=== PATIENT | male | born 1995 | race Caucasian/White ===

== ENCOUNTER 2017-04-09 11:57 | Inpatient (IN) | payer MEDICAID ==
[~2017-04-09] VITALS: Ht 182.9 cm; Wt 63.0 kg
--- NOTE | 2017-04-09 12:01 | NUR ---
[facility] CALLED. PT COMBATIVE. MOTHER AT BEDSIDE.
[2017-04-09] MEDS ORDERED: LORAZEPAM 2 MG/1 ML VIAL IV ONE (12:15)
[2017-04-09] MEDS ORDERED: IV NORMAL SALINE 1000 ML BAG IV ONE ×2 (12:15→13:15)
[2017-04-09] MEDS ORDERED: LORAZEPAM 2 MG/1 ML VIAL ONE (12:19)
[2017-04-09 12:27] LABS: BASOPHILS # (AUTO) 0.1 K/uL (0.0-8.0); BASOPHILS % (AUTO) 0.4 % (0.0-2.0); EOSINOPHILS # (AUTO) 0.2 K/uL (0.0-0.7); EOSINOPHILS % (AUTO) 1.3 % (0.0-7.0); HEMATOCRIT 47.3 % (40-50); HEMOGLOBIN 15.8 G/DL (14.0-18.0); LYMPHOCYTES # (AUTO) 3.7 K/UL (0.8-4.8); MEAN CORPUSCULAR HEMOGLOBIN 36.9 UUG (27.0-31.0); MEAN CORPUSCULAR HGB CONC 33 g/dL (32.0-37.0); MEAN CORPUSCULAR VOLUME 110.5 FL (82.0-92.0); MONOCYTES % (AUTO) 7.5 % (0.0-11.0); NEUTROPHILS # (AUTO) 8.1 K/UL (1.8-8.9); NEUTROPHILS % (AUTO) 62.8 % (38.5-71.5); PLATELET COUNT (AUTO) 116 K/UL (150-450); RED BLOOD CELL COUNT(AUTO) 4.29 MIL/UL (4.7-6.1); WHITE BLOOD COUNT (AUTO) 13.1 K/UL (4.0-11.2)
[2017-04-09] MEDS ORDERED: ONDANSETRON IV *ER 4 MG/2 ML VIAL IV ONE (12:30)
[2017-04-09] MEDS ORDERED: ONDANSETRON 4 MG/2 ML VIAL ONE (12:33)
[2017-04-09 12:38] LABS: LYMPHOCYTES % (MANUAL) 28 % (20-40); MONOCYTES % (MANUAL) 10 % (2-10); NEUTROPHILS % (MANUAL) 62 % (42-75)
[2017-04-09 12:41] LABS: CARBON DIOXIDE 11 mmol/L (21-32); CHLORIDE 93 mmol/L (98-107); CREATININE 1.2 mg/dL (0.6-1.3); GLUCOSE 181 mg/dL (74-106); POTASSIUM 3.5 mmol/L (3.5-5.1); UREA NITROGEN, BLOOD 5 mg/dL (7-18)
[2017-04-09 12:47] LABS: ALANINE AMINOTRANSFERASE 143 U/L (16-63); ALKALINE PHOSPHATASE 253 U/L (50-136); ASPARTATE AMINOTRANSFERASE 517 U/L (15-37); BILIRUBIN,DIRECT 1.2 mg/dL (0.0-0.2); BILIRUBIN,TOTAL 2.8 mg/dL (0.2-1.0); TOTAL PROTEIN, SERUM 8.9 g/dL (6.4-8.2)
[2017-04-09 12:49] LABS: PHENOBARBITAL < 1.0 ug/mL (15.0-39.0); PHENYTOIN (DILANTIN) < 0.5 ug/mL (10.0-20.0); VALPROIC ACID < 3 ug/mL (50-100)
--- NOTE | 2017-04-09 13:05 | NUR ---
PT COMFORTABLE, TALKING TO MOTHER. CALM ENOUGH TO BE ABLE TO DO THE EKG
[2017-04-09 13:10] LABS: ETHANOL < 3 MG/DL (0-0)
[2017-04-09] MEDS ORDERED: HYDROXYZINE PO (13:42)
[2017-04-09] MEDS ORDERED: MELATONIN PO (13:42)
[2017-04-09] MEDS ORDERED: ATIVAN PO (13:42)
--- NOTE | 2017-04-09 13:48 | NUR ---
PT REQUESTED TO WALK TO BATHROOM. PT WALKS IN STEADY GAIT.
[2017-04-09 14:10] VITALS: BP 103/70
--- NOTE | 2017-04-09 14:30 | NUR ---
PT IS LAYING IN BED COMFORTABLY. PADDED RAILS OF BED FOR SAFETY, PUT THE BED TO THE LOWEST POSITION. ALL SAFETY NEEDS ARE MET. NO PAIN NOTED/REPORTED. NO S/S OF RESPIRATORY DISTRESS NOTED. WILL CONTINUE TO MONITOR.
[2017-04-09 14:53] LABS: *AMPHETAMINE, URINE NEGATIVE (NEGATIVE); *BARBITURATE, URINE NEGATIVE (NEGATIVE); *CANNABINOID, URINE POSITIVE (NEGATIVE); *COCCAINE, URINE NEGATIVE (NEGATIVE); *OPIATE, URINE NEGATIVE (NEGATIVE); *PHENCYCLIDINE SCREEN,URINE NEGATIVE (NEGATIVE)
[2017-04-09] MEDS ORDERED: MVI ADULT 10 ML VIAL=1 AMP 10 ML, THIAMINE HCL INJ 100 MG, FOLIC ACID 1 MG, MAGNESIUM S... IV SCH ×5 (15:15)
[2017-04-09 15:34] VITALS: BP 103/70
[2017-04-09] MEDS: FOLIC ACID 1 MG TABLET PO SCH (16:12)
[2017-04-09] MEDS: MULTIVITAMINS,THERAPEUTIC TABLET PO SCH (16:12)
[2017-04-09] MEDS: THIAMINE HCL 100 MG TABLET PO SCH (16:12)
[2017-04-09] MEDS: POTASSIUM CHLORIDE 20 MEQ in IV D5/ 0.9% NACL 1,000 ML IV PRN (16:16)
--- NOTE | 2017-04-09 18:13 | NUR ---
PT REQUESTS TO HAVE ATIVAN NOW, AND SLEEPING MEDICATION TO BE GIVEN AT NIGHT. PAGED DR. VYAS IN REGARDS OF THE ORDERS, AWAITING RESPONSE.
--- NOTE | 2017-04-09 19:29 | NUR ---
NO CHANGES NOTED. ALL SAFETY NEEDS ARE MET.
--- NOTE | 2017-04-09 19:30 | NUR ---
NSG: PT RECEIVED IN BED, A/O X 4, ANXIOUS. WILL MEDICATE WITH ATIVAN. PT REQUESTING SLEEPING PILL WELL. WILL CALL .
[2017-04-09] MEDS: LORAZEPAM 1 MG TABLET PO PRN (19:57)
[2017-04-09 20:14] VITALS: BP 118/81
[2017-04-09] MEDS ORDERED: diphenhydrAMINE 25 MG CAP PO PRN (20:30)
--- NOTE | 2017-04-09 20:30 | NUR ---
NSG: SPOKE WITH DR. GERMAIN, AUDIOLOGY DOCTOR FOR DR. VYAS, NOTIFIED REGARDING PT REQUEST TO CHANGE FREQUENCY ORDER FOR ATIVAN AND ORDER FOR SLEEPING PILL. ONLY ORDERED BENADRYL. INFORMED PT AND HIS MOM.
[2017-04-10 00:04] VITALS: BP 119/80
[2017-04-10] MEDS: POTASSIUM CHLORIDE 20 MEQ in IV D5/ 0.9% NACL 1,000 ML IV PRN (01:52)
--- NOTE | 2017-04-10 02:00 | NUR ---
NSG: PT STILL AWAKE, THINKING OF LEAVING AMA. EXPLAINED TO PATIENT RISK OF LEAVING AMA. PER PT, WOULD STAY BUT WANTS TO BE DISCHARGED IN AM.
[2017-04-10 04:00] VITALS: BP 93/59
[2017-04-10] MEDS: LORAZEPAM 1 MG TABLET PO PRN (05:57)
--- NOTE | 2017-04-10 06:20 | NUR ---
NSG: PT AWAKE. STILL ANXIOUS. ATIVAN GIVEN. TELE, SR. CONT TO MONITOR.
[2017-04-10 06:54] LABS: BASOPHILS % (AUTO) 0.5 % (0.0-2.0); EOSINOPHILS # (AUTO) 0.1 K/uL (0.0-0.7); EOSINOPHILS % (AUTO) 1.6 % (0.0-7.0); HEMATOCRIT 40.2 % (40-50); HEMOGLOBIN 13.9 G/DL (14.0-18.0); LYMPHOCYTES # (AUTO) 1.6 K/UL (0.8-4.8); LYMPHOCYTES % (AUTO) 27.8 % (20.5-51.5); MEAN CORPUSCULAR HEMOGLOBIN 37.3 UUG (27.0-31.0); MEAN CORPUSCULAR HGB CONC 35 g/dL (32.0-37.0); MEAN CORPUSCULAR VOLUME 107.6 FL (82.0-92.0); MONOCYTES # (AUTO) 0.4 K/UL (0.1-1.30); NEUTROPHILS # (AUTO) 3.8 K/UL (1.8-8.9); NEUTROPHILS % (AUTO) 63.1 % (38.5-71.5); PLATELET COUNT (AUTO) 77 K/UL (150-450); RED BLOOD CELL COUNT(AUTO) 3.73 MIL/UL (4.7-6.1); WHITE BLOOD COUNT (AUTO) 5.9 K/UL (4.0-11.2)
[2017-04-10 07:48] LABS: ALKALINE PHOSPHATASE 180 U/L (50-136); ASPARTATE AMINOTRANSFERASE 366 U/L (15-37); BILIRUBIN,TOTAL 2.5 mg/dL (0.2-1.0); CARBON DIOXIDE 24 mmol/L (21-32); CHLORIDE 105 mmol/L (98-107); CREATININE 0.6 mg/dL (0.6-1.3); GLUCOSE 84 mg/dL (74-106); POTASSIUM 3.5 mmol/L (3.5-5.1); TOTAL PROTEIN, SERUM 7.2 g/dL (6.4-8.2); UREA NITROGEN, BLOOD 1 mg/dL (7-18)
[2017-04-10 07:56] LABS: ALANINE AMINOTRANSFERASE 114 U/L (16-63)
[2017-04-10] MEDS: FOLIC ACID 1 MG TABLET PO SCH (08:09)
[2017-04-10] MEDS: MULTIVITAMINS,THERAPEUTIC TABLET PO SCH (08:09)
[2017-04-10] MEDS: THIAMINE HCL 100 MG TABLET PO SCH (08:09)
[2017-04-10] MEDS ORDERED: LORA-259 PO (08:45)
[2017-04-10 10:49] LABS: EOSINOPHILS % (MANUAL) 2 % (0-8); LYMPHOCYTES % (MANUAL) 29 % (20-40); MONOCYTES % (MANUAL) 7 % (2-10); NEUTROPHILS % (MANUAL) 62 % (42-75)
--- NOTE | 2017-04-10 11:00 | NUR ---
DISCHARGE NOTE: PT IS CALM AND COOPERATIVE. NO S/S OF RESPIRATORY DISTRESS NOTED. NO PAIN REPORTED. IV/WRISTBAND ARE REMOVED. DOCTOR ASAEL TALKED TO THE PT, PHARMACIST ADVISED ON THE PRESCRIPTION. PRESCRIPTION IS GIVEN TO PT. EDUCATION IS PROVIDED. FAMILY EXPRESSED INTEREST IN COMING TO [facility], CONTACT INFORMATION WAS PROVIDED. PT IS WHEELED DOWN TO LOBBY, NO SEIZURE ACTIVITY IS NOTED. PT LEFT VIA PRIVATE CAR WITH HIS MOTHER.
== END 2017-04-10 11:15 | disposition home or self-care (01) | DRG 53 ==
LOC: ER 12:06 → TELE 14:05 → MED 04-10 09:20
PROVIDERS: ADMIT Internal Medicine; ATTEND Internal Medicine
DX: G40.509 Epileptic seizures related to external causes, not intractable, without status epilepticus (principal); E87.2 Acidosis; K70.9 Alcoholic liver disease, unspecified; F10.239 Alcohol dependence with withdrawal, unspecified; Y90.0 Blood alcohol level of less than 20 mg/100 ml; F19.10 Other psychoactive substance abuse, uncomplicated; F41.9 Anxiety disorder, unspecified; Z88.0 Allergy status to penicillin
CPT/HCPCS: 36415; 70450; 71010; 80164; 80184; 80307; 85025; 85730; 93005; A4663; G0480; J2060; J2405; J3480; J7030; J7042; Q0163

== ENCOUNTER 2017-05-17 20:42 | Emergency (ER) | payer MEDICAID ==
[~2017-05-17] VITALS: Ht 185.4 cm; Wt 63.2 kg
[~2017-05-17 20:42] MED LIST: HYDROXYZINE PO; LORA-259 PO; MELATONIN PO
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
--- NOTE | 2017-05-17 21:09 | NUR ---
Dr. Magaña at bedside for eval.
--- NOTE | 2017-05-17 22:27 | NUR ---
Patient discharged to home in stable conditon. Written and verbal after care instructions given. Patient verbalizes understanding of instructions. Patient left with stable gait, patient is upset that he was given celebrex for his pain, wanted narcotics for his pain. Patient left in stable condition with rx in hand.
[2017-05-17 22:30] VITALS: BP 117/83
== END 2017-05-17 22:30 | disposition home or self-care (01) ==
LOC: ER 20:47
DX: M79.602 Pain in left arm (principal); F41.9 Anxiety disorder, unspecified; F10.20 Alcohol dependence, uncomplicated; M54.2 Cervicalgia; R07.81 Pleurodynia; Z88.0 Allergy status to penicillin; V89.2XXA Person injured in unspecified motor-vehicle accident, traffic, initial encounter; W22.10XA Striking against or struck by unspecified automobile airbag, initial encounter; Y99.8 Other external cause status; Y93.89 Activity, other specified; Y92.89 Other specified places as the place of occurrence of the external cause
CPT/HCPCS: 71101; A4663